=== PATIENT | male | born 1950 | race Caucasian/White ===

== ENCOUNTER 2019-03-06 18:32 | Inpatient (IN) | payer OTHER ==
[~2019-03-06] VITALS: Ht 170.2 cm; Wt 68.5 kg
--- NOTE | 2019-03-06 19:30 | NUR ---
Admitted a 68 y/o male from [facility]. Patient on 5150 hold as DTO and GD, per hold, patient's behavior escalated, bizarre, aggressive and agitated. Upon face to face evaluation, patient presents as alert and oriented x 4, calm, cooperative, withdrawn, verbalized that he is very depressed that he can not do what he used to do when he is stressed. Patient contracted for safety and seeking help to get better. Patient arrived via [facility] . Received patient in bed. Skin and body assessment done. Pictures taken and placed in chart. Explained the paper works and patient signed the consents. Informed of visiting hours and unit policies. Belongings and contraband checked. Q15 min checks initiated. Care plan started. Vital signs checked and recorded. Patient's rights discussed, guide to prescription meds handbook provided. Patient advised of the hold. Patient used cordless phone and spoke to his spouse and son. Son spoke to the charge nurse regarding of the admission. MRSA specimen collected. Notified Dr. Conrad of the admission. Dr. Peña reconciled medication. Will monitor patient for mood, safety and behavior. Will endorse to the day shift.
[2019-03-06] MEDS ORDERED: ATOR10TA PO (19:52)
[2019-03-06] MEDS ORDERED: AMLO5TAB4 PO (19:52)
[2019-03-06] MEDS ORDERED: LORA-259 PO (19:53)
[2019-03-06] MEDS ORDERED: ENOX40DI SUBCUT (19:59)
[2019-03-06 20:00] VITALS: BP 147/93
[2019-03-06] MEDS ORDERED: MELA3TAB PO (20:00)
[2019-03-06] MEDS ORDERED: OLAN5TAB3 PO (20:00)
[2019-03-06] MEDS ORDERED: ONDA4TAB11 PO (20:03)
[2019-03-06] MEDS ORDERED: MAG HYDROX/AL HYDROX/SIMETH 30 ML UDC PO PRN (20:30)
[2019-03-06] MEDS ORDERED: MAGNESIUM HYDROXIDE 30 ML UDC PO PRN (20:30)
[2019-03-06] MEDS ORDERED: Medication Not On Formulary EA (Melatonin 0.5 MG) PO PRN (21:00)
[2019-03-06 22:22] VITALS: BP 147/93
[2019-03-07] MEDS: LORAZEPAM 0.5 MG TABLET PO PRN ×3 (00:34→19:58)
--- NOTE | 2019-03-07 00:39 | NUR ---
gps rn note: Patient responsive to internal stimuli, acting bizarre, hyperventilating, anxious, ativan 0.5mg po given and patient appreciated, will continue to monitor [id number] for safety
[2019-03-07 07:38] LABS: BASOPHILS % (AUTO) 0.5 % (0.0-2.0); HEMATOCRIT 41 % (39-51); HEMOGLOBIN 13.7 g/dL (13.5-17.5); LYMPHOCYTES # (AUTO) 0.9 /CMM (0.8-4.8); LYMPHOCYTES % (AUTO) 15.9 % (20.0-44.0); MEAN CORPUSCULAR HGB CONC 34 g/dl (31.0-36.0); MEAN CORPUSCULAR VOLUME 93 fL (80-96); MONOCYTES # (AUTO) 0.5 /CMM (0.1-1.30); MONOCYTES % (AUTO) 9.5 % (2.0-12.0); NEUTROPHILS # (AUTO) 4.1 /CMM (1.8-8.9); NEUTROPHILS % (AUTO) 73.1 % (43.0-81.0); PLATELET COUNT (AUTO) 192 /CMM (150-450); RED BLOOD CELL COUNT(AUTO) 4.39 MIL/uL (4.5-6.0); WHITE BLOOD COUNT (AUTO) 5.7 K/uL (4.3-11.0)
[2019-03-07 07:54] LABS: CALCIUM, SERUM 9.6 mg/dL (8.5-10.1); CREATININE 1.1 mg/dL (0.6-1.3); MAGNESIUM 2.2 mg/dL (1.8-2.4); PHOSPHORUS 3.4 mg/dL (2.5-4.9); POTASSIUM 3.7 mmol/L (3.5-5.1)
[2019-03-07 08:00] VITALS: BP 132/72
[2019-03-07] MEDS: AMLODIPINE BESYLATE 5 MG TABLET PO SCH (08:44)
[2019-03-07] MEDS: ENOXAPARIN SODIUM 40 MG/0.4 ML DISP.SYRIN SQ SCH (08:51)
--- NOTE | 2019-03-07 13:00 | NUR ---
GPS NOTE THE PATIENT NOTED PACING IN THE HALLWAY AND TALKING TO SELF. THE PATIENT IS ASKED IF HE HEARS VOICES, THE PATIENT DENIES, HOWEVER, UPON OBSERVATION IS NOTED THAT THE PATIENT IS REPOSNDING TO INTERNAL STIMULI. WHEN ASKED AGAIN, THE PATIENT SAID " WAIT, I AM UPSET ON THESE GUYS" THE PATIENT WAS REFERRING VOICES IN HIS HEAD. THE PATIENT DENIES SI, HI. AFTERWARD THE PATIENT IS SEEN TRYING TO LIE ON THE FLOOR. THE PATIENT IS ASKED WHY IS HE TRYING TO LIE ON THE FLOOR AND HE SAID " IT CALM ME DOWN". THE PATIENT IS ASKED TO LIE IN BED BUT THE PATIENT REFUSED. LATER THE PATIENT IS SEEN AGAIN LYING ON THE FLOOR A WAY OF RELAXING.
[2019-03-07 16:00] VITALS: BP 149/94
[2019-03-07] MEDS: ATORVASTATIN 10 MG TABLET PO SCH (17:49)
[2019-03-07] MEDS ORDERED: OLANZAPINE 5 MG TABLET PO SCH (18:00)
[2019-03-07 20:36] VITALS: BP 141/90
[2019-03-07] MEDS: TEMAZEPAM 7.5 MG CAPSULE PO PRN (20:39)
[2019-03-08] MEDS: LORAZEPAM 0.5 MG TABLET PO PRN ×2 (02:00→08:39)
--- NOTE | 2019-03-08 06:35 | NUR ---
GPS/RN-PLACED A CALL TO REGARDING PATIENTS BEHAVIOR.UNABLE TO REDIRECT,PATIENT GOES TO OTHER PATIENTS ROOM WAKING THEM UP,REMOVING THEIR BLANKET AND TAKING THEIR BELONGINGS.DR. MITCHELL ORDERED 1:1 SITTER.NOTED AND CARRIED OUT.
[2019-03-08 07:20] LABS: ALBUMIN 4.1 g/dL (3.4-5.0); BILIRUBIN,TOTAL 0.8 mg/dL (0.2-1.0); CALCIUM, SERUM 9.8 mg/dL (8.5-10.1); POTASSIUM 3.6 mmol/L (3.5-5.1); TOTAL PROTEIN, SERUM 7.4 g/dL (6.4-8.2)
[2019-03-08 07:21] LABS: BASOPHILS % (AUTO) 0.5 % (0.0-2.0); EOSINOPHILS % (AUTO) 0.9 % (0.0-6.0); HEMATOCRIT 44 % (39-51); HEMOGLOBIN 14.9 g/dL (13.5-17.5); LYMPHOCYTES # (AUTO) 1.1 /CMM (0.8-4.8); LYMPHOCYTES % (AUTO) 18.6 % (20.0-44.0); MEAN CORPUSCULAR HGB CONC 34 g/dl (31.0-36.0); MEAN CORPUSCULAR VOLUME 93 fL (80-96); MONOCYTES # (AUTO) 0.6 /CMM (0.1-1.30); MONOCYTES % (AUTO) 10.3 % (2.0-12.0); NEUTROPHILS # (AUTO) 4.3 /CMM (1.8-8.9); NEUTROPHILS % (AUTO) 69.7 % (43.0-81.0); PLATELET COUNT (AUTO) 190 /CMM (150-450); RED BLOOD CELL COUNT(AUTO) 4.69 MIL/uL (4.5-6.0); WHITE BLOOD COUNT (AUTO) 6.1 K/uL (4.3-11.0)
[2019-03-08 08:00] VITALS: BP 160/99
--- NOTE | 2019-03-08 08:00 | NUR ---
GPS RN AM NOTES THE PATIENT NOTED PACING IN THE HALLWAY AND TALKING TO SELF. THE PATIENT IS ASKED IF HE HEARS VOICES,PATIENT DENIES SI, HI.PT IS WITH 1:1 SITTER.PT TALKS TO HIMSELF SAYING HE'S BLEEDING AND HE'S DYING. PT KEEPS PACING WITH THE SITTER.WILL GIVE LORAZEPAM 0.5 MG PO FOR ANXIETY. PT COMPLIANT WITH MEDS AND COOPERATIVE WITH STAFF.WILL CONTINUE TO MONITOR.
[2019-03-08] MEDS: ACETAMINOPHEN 325 MG TABLET PO PRN (08:39)
[2019-03-08] MEDS: AMLODIPINE BESYLATE 5 MG TABLET PO SCH (08:39)
[2019-03-08] MEDS: DIVALPROEX SODIUM 250 MG TABLET.DR PO SCH ×4 (08:40→23:14)
[2019-03-08] MEDS: ENOXAPARIN SODIUM 40 MG/0.4 ML DISP.SYRIN SQ SCH (08:41)
--- NOTE | 2019-03-08 10:03 | NUR ---
SW contacted pts Frances [phone] to discuss pts treatment plan and discharge plan and also discussed collateral information. Per this is the first time pt has ever had a psychiatric hospitalization and a psychiatric episode. stated that she is unsure what triggered pts brenda and also stated that she was scared regarding the medication pt has been given. stated that she feels the hospital is trying to "drug him up" so that he is complacent with his care. SW informed her that pt is currently manic and has been diagnosed with Mood disorder, not otherwise specified, rule out bipolar disorder, most recent episode manic and that medication is required to reduce symptoms of brenda. SW informed her that she should discuss pts medication regimen in detail with psychiatrist and SW also informed her that she would be informing psychiatrist Dr. Conrad to contact her to discuss pts treatment further. also mentioned that pt has regressed since admitted to this hospital and mentioned that pt was not having these symptoms of brenda when transferred from the previous hospital.
--- NOTE | 2019-03-08 11:12 | NUR ---
INITIAL DISCHARGE NOTE: Per Frances [phone] she is exploring placement options and is currently working with a private lead case manager Christal Mccallum, [facility] [phone] who will be assisting with alternative placement options. stated she may not be able to provide pt with the care he needs at home and may require he live in a setting that can provide him with more assistance. LEN will help form a safe and proper discharge in collaboration with .
--- NOTE | 2019-03-08 15:00 | NUR ---
PT'S ,SARAH CALLED AND MADE PT AWARE OF HIS AND SON CALLING HIM AND THAT THEY ARE COMING TO VISIT HIM.PT STARTED CRYING TERRIBLY, VERBAL AND EMOTIONAL SUPPORT PROVIDED. PROVIDED TISSUE TO WIPE HIS TEARS.1;1 SITTER AT BEDSIDE.
[2019-03-08 16:00] VITALS: BP 148/97
--- NOTE | 2019-03-08 17:00 | NUR ---
PT WAS PACING IN THE HALLWAY WITH THE SITTER AND ALL OF A SUDDEN WANTS TO HEAD OUT TO THE EXIT DOOR PUSHING IT TO OPEN.GENTLY APPROACHED THE PT AND EXPLAINED IN A LOW VOICE NOT TO OPEN THE DOOR. PT'S EYES WIDE OPEN,WITH A POTTS,ANGRY FACE,HEADING BACK TO THE EXIT DOOR AND ABOUT TO HIT THE STAFF.CALLED FOR HELP AND THE REST OF THE STAFF HELD THE PT'S HANDS FOR SAFETY. PT DIVERTED HIS ATTENTION TO THE SITTER,SCREAMING AT THE SITTER ANGRILY SCREAMING ANGRILY,"YOU LIED TO ME!YOU LIED TO ME!" REPEATEDLY.CALLED FOR PATRICIA FRANCES FOR HELP/ASSISTANCE WHEN PT'S ANGER WAS ESCALATING.PAGED DR MITCHELL.
[2019-03-08] MEDS ORDERED: OLANZAPINE 10 MG VIAL IM STA (17:06)
[2019-03-08] MEDS ORDERED: LORAZEPAM INJ 2 MG/ML VIAL IM STA (17:06)
--- NOTE | 2019-03-08 17:14 | NUR ---
DR MITCHELL MADE AWARE WITH ORDERS CARRIED OUT.ADMINISTERED ATIVAN 1 MG AND ZYPREXA 5 MG IM GIVEN WITH 7 MEN HOLDING PT BECAUSE PT KICKS AND GRABS STAFF.WILL MONITOR PT.
--- NOTE | 2019-03-08 17:40 | NUR ---
PT STILL HAS EPISODES OF AGITATION SCREAMING,KICKING AND GRABBING STAFF.CLOSELY MONITORED FOR SAFETY.
--- NOTE | 2019-03-08 18:00 | NUR ---
PT'S ,SARAH AND SON,NIYAH ARRIVED TO TALK TO THE PT. CLOSELY MONITORED FOR SAFETY.
[2019-03-08] MEDS: ATORVASTATIN 10 MG TABLET PO SCH (18:24)
--- NOTE | 2019-03-08 18:30 | NUR ---
SARAH AND SON NIYAH BROUGHT AN ADVANCE DIRECTIVES AND WAS CLARIFIED AND SAID THEY WANTED A DNR/DNI FOR THE PATIENT. WITNESSED BY THE CHARGE NURSE JOSS ERIC'S EFREM.
--- NOTE | 2019-03-08 18:40 | NUR ---
PT SLEEPING COMFORTABLY IN BED WITH NO S/S OF PAIN OR DISTRESS.WITH 1:1 SITTER AT BEDSIDE.WILL CONTINUE TO MONITOR.
[2019-03-08 20:00] VITALS: BP 114/78
[2019-03-08] MEDS: QUETIAPINE FUMARATE 100 MG TABLET PO SCH ×2 (22:00→23:14)
--- NOTE | 2019-03-08 22:17 | NUR ---
SEROQUEL 100 MG TAB PO NOT GIVEN DUE FOR 2199, PATIENT STILL SLEEPING DUE TO IM SHOT ADMIISTERED EARLIER AROUND 1700 DUE TO BEHAVIORAL SYMPTOMS.
--- NOTE | 2019-03-08 22:19 | NUR ---
DEPAKOTE 250 MG TAB PO NOT GIVEN FOR 2100, PATIENT STILL SLEEPING DUE TO IM SHOT GIVEN AROUND 1700 FOR BEHAVIORAL SYMPTOMS.
--- NOTE | 2019-03-08 23:15 | NUR ---
PATIENT JUST WOKE UP, USED THE TOILET. TOOK HIS MEDICATIONS FOR TONIGHT, DEPAKOTE 250 MG TAB, AND SEROQUEL 100MG TAB. CALM AND QUIET, COOPERATIVE. HS SNACKS GIVEN, C/O FEELING HUNGRY, SANDWICH AND JUICE.
[2019-03-09] MEDS: LORAZEPAM 0.5 MG TABLET PO PRN ×2 (00:10→16:24)
--- NOTE | 2019-03-09 02:35 | NUR ---
AWAKE, NOT SLEEPING. AMBULATES IN AND OUTSIDE HIS ROOM, TEMAZEPAM 7.5 GIVEN, PATIENT REFUSED X2.
--- NOTE | 2019-03-09 06:57 | NUR ---
Seroquel 100 mg tab po given at 2314. Patient just woke up.
[2019-03-09 08:00] VITALS: BP 105/66
--- NOTE | 2019-03-09 08:37 | NUR ---
GPS/RN-NOTES DR. HOLDER SEEN THE PATIENT WITH VERBAL ORDER TO DISCONTINUE LOVENOX,NOTED AND CARRIED OUT.
[2019-03-09] MEDS: DIVALPROEX SODIUM 250 MG TABLET.DR PO SCH ×4 (09:00→23:08)
[2019-03-09] MEDS: AMLODIPINE BESYLATE 5 MG TABLET PO SCH (09:00)
[2019-03-09 16:00] VITALS: BP 130/87
--- NOTE | 2019-03-09 16:27 | NUR ---
GPS/RN-NOTES NOTED PATIENT VERY ANXIOUS PACING INSIDE THE ROOM,UNABLE TO SIT STILL, REDIRECTED AND OFFERED ATIVAN AND GREED. ATIVAN 0.5MG P.O GIVEN PRN ORDER. ON 1:1 MONITORING FOR SAFETY AND BEHAVIOR.
[2019-03-09] MEDS: ATORVASTATIN 10 MG TABLET PO SCH (17:06)
--- NOTE | 2019-03-09 17:25 | NUR ---
GPS/RN-NOTES PATIENT IN THE ROOM LAYING IN THE TOMMIE CHAIR CALM ,NO ACUTE DISTRESS NOTED.
[2019-03-09 19:55] VITALS: BP 148/97
[2019-03-09] MEDS: QUETIAPINE FUMARATE 100 MG TABLET PO SCH ×2 (22:00→23:08)
[2019-03-09] MEDS: TEMAZEPAM 7.5 MG CAPSULE PO PRN (23:08)
--- NOTE | 2019-03-09 23:10 | NUR ---
03/09/2019 7P-7A SHIFT. SEROQUEL 100MG PO 1TAB AT 2308.
[2019-03-10] MEDS: LORAZEPAM 0.5 MG TABLET PO PRN ×2 (04:08→21:15)
[2019-03-10 08:00] VITALS: BP 134/78
[2019-03-10] MEDS: AMLODIPINE BESYLATE 5 MG TABLET PO SCH (08:55)
[2019-03-10] MEDS: DIVALPROEX SODIUM 250 MG TABLET.DR PO SCH ×3 (08:55→21:06)
[2019-03-10] MEDS: LEVOTHYROXINE SODIUM 25 MCG TABLET PO SCH (14:35)
[2019-03-10 16:00] VITALS: BP 134/84
[2019-03-10] MEDS: ATORVASTATIN 10 MG TABLET PO SCH (18:17)
[2019-03-10 20:36] VITALS: BP 162/92
[2019-03-10] MEDS: TEMAZEPAM 7.5 MG CAPSULE PO PRN (21:06)
--- NOTE | 2019-03-10 21:34 | NUR ---
03/10/2019: DIVALPROEX 250 MG TAB 1 PO GIVEN AT 2133.
--- NOTE | 2019-03-10 21:51 | NUR ---
03/10/2019: SEROQUEL 100 MG TAB PO GIVEN AT 2131.
[2019-03-11 08:00] VITALS: BP 122/67
[2019-03-11] MEDS: DIVALPROEX SODIUM 250 MG TABLET.DR PO SCH ×3 (08:16→21:28)
[2019-03-11] MEDS: AMLODIPINE BESYLATE 5 MG TABLET PO SCH (08:17)
[2019-03-11] MEDS: LEVOTHYROXINE SODIUM 25 MCG TABLET PO SCH (08:17)
--- NOTE | 2019-03-11 09:11 | NUR ---
RN-CO: PATIENT IS MORE REDIRECTABLE, NO AGGRESSION NOTED FROM LAST NIGHT, NOTIFIED DR MITCHELL AND ORDERED TO DISCONTINUE 1:1 SITTER NOTED.
--- NOTE | 2019-03-11 14:51 | NUR ---
GROUP NOTE: Pt unable to participate in group on this present day as pt is actively responding to internal stimuli and not being appropriate for group.
[2019-03-11 16:00] VITALS: BP 157/90
[2019-03-11] MEDS: ATORVASTATIN 10 MG TABLET PO SCH (17:58)
[2019-03-11] MEDS: LORAZEPAM 0.5 MG TABLET PO PRN (19:30)
[2019-03-11 20:53] VITALS: BP 113/74
[2019-03-11 21:00] VITALS: BP 113/74
[2019-03-11] MEDS: risperiDONE 1 MG TABLET PO SCH (21:28)
[2019-03-11] MEDS: TEMAZEPAM 7.5 MG CAPSULE PO PRN (23:03)
[2019-03-12] MEDS: LORAZEPAM 0.5 MG TABLET PO PRN ×3 (01:35→20:04)
--- NOTE | 2019-03-12 01:40 | NUR ---
GPS RN NOTES: PT. NOTED VERY ANXIOUS,HYPERVERBAL, RESTLESS PACING IN HALLWAY, NOT FOLLOWING ANY REDIRECTIONS, ATIVAN 0.5 MG PO PRN GIVEN , WILL CONTINUE TO MONITOR.
--- NOTE | 2019-03-12 07:24 | NUR ---
GPS RN NOTES: DURING SHIFT PT. NOTED VERY DISORGNIZED CONFUSED LOUD TALKING SELF ANXIOUS,HYPERVERBAL, RESTLESS PACING IN HALLWAY, NOT FOLLOWING ANY DIRECTIONS , ENDORSE TO DAY NURSE FOR CONTINUITY OF CARE .WILL CONTINUE TO MONITOR.
[2019-03-12 08:00] VITALS: BP 146/99
--- NOTE | 2019-03-12 08:02 | NUR ---
Received patient . Alert and oriented times 2, person and place. Receptive upon approach. However, patient required redirection at times. Minimal interaction with peers. Will continue to monitor behavior and medication effectiveness throughout shift.
--- NOTE | 2019-03-12 08:16 | NUR ---
LEN contacted pts Frances [phone] to inform her pt will be having a Probable Cause Hearing on this present day at 0930. Pts chose not to attend and stated she would contact LEN later during the week to discuss placement for pt.
[2019-03-12] MEDS: LEVOTHYROXINE SODIUM 25 MCG TABLET PO SCH (08:54)
[2019-03-12] MEDS: DIVALPROEX SODIUM 250 MG TABLET.DR PO SCH ×3 (08:55→21:10)
[2019-03-12] MEDS: AMLODIPINE BESYLATE 5 MG TABLET PO SCH (08:56)
[2019-03-12] MEDS: risperiDONE 1 MG TABLET PO SCH ×2 (08:56→21:10)
--- NOTE | 2019-03-12 15:21 | NUR ---
GROUP NOTE: Pt was present during group discussing the topic of "issues related to your current hospitalization." S: "I don't trust anyone here I don't even trust my that much she is making decision that I don't think are good for me. I mean I am willing to stay here but I don't know I keep having these spikes that I don't really understand." O: Pt was anxious and appeared paranoid, pt had his folder with paperwork hidden underneath his hospital gown. Pt was also hyperverbal and difficult to redirect. A: Pt has poor insight and has gained some awareness of his current mental illness and reason for hospitalization. P: Pt will continue milieu treatment and medication stabilization.
--- NOTE | 2019-03-12 15:39 | NUR ---
Patient with episodes of confusion and irritability. Redirected and assisted frequently. Compliant with the plan of care.
[2019-03-12 16:00] VITALS: BP 125/88
[2019-03-12] MEDS: ATORVASTATIN 10 MG TABLET PO SCH (17:12)
--- NOTE | 2019-03-12 17:33 | NUR ---
Neurologist Dr. Bradshaw called. Awaiting to hear from the doctor. Will continue to monitor patient behavior and medication effectiveness.
--- NOTE | 2019-03-12 20:05 | NUR ---
GPS RN NOTES : PT. NOTED VERY ANXIOUS,HYPERVERBAL, RESTLESS PACING IN HALLWAY, NOT FOLLOWING ANY REDIRECTIONS, ATIVAN 0.5 MG PO PRN GIVEN , WILL CONTINUE TO MONITOR.
[2019-03-12 20:35] VITALS: BP 164/78
[2019-03-12 22:00] VITALS: BP 130/80
[2019-03-12] MEDS: TEMAZEPAM 7.5 MG CAPSULE PO PRN (23:11)
[2019-03-13] MEDS: ACETAMINOPHEN 325 MG TABLET PO PRN (01:50)
--- NOTE | 2019-03-13 03:05 | NUR ---
GPS RN NOTES : PT. NOTED VERY ANXIOUS, UNCOOPERTIVE,UNPREDICTABLE HYPERVERBAL, RESTLESS PACING IN HALLWAY AND ROOM , VERBAL ABUSING TO STAFF, PT. LOCKED HIMSELF IN THE RESTROOM , WHEN STAFF MEMBER TRYING TO OPEN THE RESTROOM LOCKED AND DIRECT HIM TO STEP OUT , PT. DIDN'T FOLLOWING ANY DIRECTIONS .STAFF ASKED THE PATIENT TO OPEN THE DOOR AND PATIENT OPENED THE DOOR AND AT THE SAME TIME THREW THE URINE TOWARDS THE FACE OF THE STAFF.PATRICIA URBAN WAS CALLED FOR STAFF SUPPORT .PATIENT WAS ESCORTED BY STAFF TO THE OBSERVATION ROOM. NOTIFIED DR. MITCHELL PT. BEHAVIOR, NEW VERBAL TELEPHONE ORDERS RECIVED ATIVAN 2 MG IM ONCE ,ZYPREXA 10 MG IM ONCE AND TO PLACE PATIENT ON 4 POINT RESTRAINT. NEW ORDERS RECIVED AND CARRIED OUT ,WILL CONTINUE TO MONITOR.
[2019-03-13] MEDS ORDERED: LORAZEPAM INJ 2 MG/ML VIAL IM STA (03:14)
[2019-03-13] MEDS ORDERED: OLANZAPINE 10 MG VIAL IM ONE (03:30)
--- NOTE | 2019-03-13 03:45 | NUR ---
GPS RN NOTES : PT. NOTIFED REGARDING GIVEN INJECTION ZYPREXA 10 MG IM ONCE ,ATIVAN 2 MG IM ONCE,PER DR. MITCHELL ORDERS, WRITE SPOKE WITH ABOUT PT. BEHAVIOR VERY ANXIOUS, UNCOOPERTIVE,UNPREDICTABLE HYPERVERBAL, RESTLESS PACING IN HALLWAY AND ROOM , VERBAL ABUSING TO STAFF, PT. LOCKED HIMSELF IN THE RESTROOM , WHEN STAFF MEMBER TRYING TO OPEN THE RESTROOM LOCKED AND DIRECT HIM TO STEP OUT , PT. DIDN'T FOLLOWING ANY DIRECTIONS .STAFF ASKED THE PATIENT TO OPEN THE DOOR AND PATIENT OPENED THE DOOR AND AT THE SAME TIME THREW THE URINE TOWARDS THE FACE OF THE STAFF.PATRICIA URBAN WAS CALLED FOR STAFF SUPPORT .PATIENT WAS ESCORTED BY STAFF TO THE OBSERVATION ROOM. AND TO PLACE PATIENT ON 4 POINT RESTRAINT ,WILL CONTINUE TO MONITOR.
--- NOTE | 2019-03-13 04:14 | NUR ---
GPS RN NOTES: CALLED ER , SPOKE WITH ER CHARGE NURSE REGARDING I HOUR FACE TO FACE ASSESSMENT THE PATIENT. PER ER CHARGE NURSE MD WAS UNBALE, GPS CHARGE NURSE DID FACE TO FACE ASSESSMENT, NO ACUTE DISTRESS NOTED, PT. TOLERATE WELL VITAL SIGNS WNL, SEE PT. ASESSMENT SHEET .
--- NOTE | 2019-03-13 05:33 | NUR ---
4 POINT RESTRAINT WAS DISCONTINUED AT 05:30.PATIENT ABLE TO CONTRACT FOR SAFETY,CALM,COOPERATIVE ,NO S/S OF ACUTE DISTRESS NOTED.
--- NOTE | 2019-03-13 06:49 | NUR ---
RN GPS NOTES: COLLECT URINE SPECIMEN AND SEND OUT TO THE LAB.
--- NOTE | 2019-03-13 06:51 | NUR ---
GPS RN NOTES : PT. CALM , RESTING AT HIS TIME , NO ACUTE DISTRESS NOTED, VITAL SIGNS WNL , WILL ENDORSE TO ON COMING NURSE FOR CONTINUITY OF CARE.
[2019-03-13] MEDS: LEVOTHYROXINE SODIUM 25 MCG TABLET PO SCH (07:30)
[2019-03-13 08:00] VITALS: BP 91/61
[2019-03-13] MEDS: AMLODIPINE BESYLATE 5 MG TABLET PO SCH (09:00)
[2019-03-13 09:24] LABS: APPEARANCE,URINE CLEAR (CLEAR); BILIRUBIN,URINE NEGATIVE (NEGATIVE); BLOOD, URINE NEGATIVE Ery/uL (NEGATIVE); COLOR,URINE YELLOW (YELLOW); KETONES,URINE TRACE (NEGATIVE); LEUKOCYTE ESTERASE ,URINE NEGATIVE (NEGATIVE); NITRITE, URINE NEGATIVE (NEGATIVE); PH,URINE 6.5 (5.0-8.0); PROTEIN,URINE NEGATIVE (NEGATIVE); UGLUCOSE NEGATIVE (NEGATIVE); UROBILINOGEN,URINE 0.2 EU/dL (0.2)
[2019-03-13] MEDS: DIVALPROEX SODIUM 250 MG TABLET.DR PO SCH ×2 (09:37→12:35)
[2019-03-13] MEDS: risperiDONE 1 MG TABLET PO SCH (09:38)
[2019-03-13 09:52] LABS: BACTERIA,URINE Rare /HPF (None Seen); RBC,URINE 0-2 /HPF (0-2); SQUAMOUS EPITHELIAL CELL,UR None Seen /HPF (None Seen); WBC,URINE 0-2 /HPF (0-3)
[2019-03-13] MEDS: LORAZEPAM 0.5 MG TABLET PO PRN (10:54)
--- NOTE | 2019-03-13 10:59 | NUR ---
GPS/RN-NOTES NOTED PATIENT VERY ANXIOUS PACING INSIDE THE ROOM,UNABLE TO SIT STILL.ATIVAN 0.5MG P.O GIVEN PRN ORDER. ON 1:1 MONITORING FOR SAFETY AND BEHAVIOR.
--- NOTE | 2019-03-13 11:55 | NUR ---
GPS/RN-NOTES PATIENT LAYING IN BED CALM,NO ACUTE DISTRESS NOTED.
[2019-03-13 16:00] VITALS: BP 129/66
[2019-03-13] MEDS: ATORVASTATIN 10 MG TABLET PO SCH (17:50)
--- NOTE | 2019-03-13 19:10 | NUR ---
GPS/RN-NOTES DURING THE CHANGE OFF SHIFT SITTER STAFF CALLING FOR HELP FROM THE PATIENT BATHROOM,NURSE COORDINATOR CHECK AND FOUND PATIENT SITTING ON THE TOILET SEAT UNRESPONSIVE . TWO STAFF ASSISTED PATIENT BACK TO THE BED AND PATIENT GOT AWAKE ABLE TO STATE FULL NAME AND KNOW WERE HE WAS. BP WAS 88/56,R17, ,PULSE 67,T97.9 ,AND O2 97%. CHARGE NURSE AWARE AND DECIDE TO CALL [facility].
[2019-03-13 19:15] VITALS: BP 78/43
--- NOTE | 2019-03-13 19:20 | NUR ---
GPS RN NOTE, DR MITCHELL MADE AWARE OF DISCHARGE GAVE ORDER TO CONTINUE 5250 HOLD, CONTINUE 1 TO 1 SITTER, AND TO CONTINUE PSYCHOTROPIC MEDICATION. ALL ORDERS NOTED AND CARRIED OUT. REPORT GIVEN TO VIKTOR COREAS FOR CONTINUED CARE.
--- NOTE | 2019-03-13 19:20 | NUR ---
GPS RN NOTE, [facility] CALLED FOR PATIENT DUE TO LOC AND HYPOTENSION. THEO GOMES DNP ON FLOOR WITH [facility] RESPON[facility] TEAM. THEO GOMES DNP GAVE ORDER ZOFRAN 4 MG IV ONCE , NS @100ML/HR, CBC, BMP, MAG, PHOS, AND CHEST X-RAY STAT. ALL ORDERS NOTED AND CARRIED WILL CONTINUE TO MONITOR THIS PATIENT.
--- NOTE | 2019-03-13 19:55 | NUR ---
GPS RN NOTE, PATIENT DISCHARGED AND TRANSFERRED TO ROOM 106 -1 TELE. PATIENT LEFT IN STABLE CONDITION. PATIENT BELONGINGS SENT WITH PATIENT. PATIENT UNABLE TO SIGN NECESSARY PAPER WORK. INFORMED PATIENT SARAH SANTIAGO OF TRANSFER TO 106 -1. REPORT GIVEN TO VIKTOR COREAS FOR CONTINUED CARE.
[2019-03-13] MEDS ORDERED: ONDANSETRON HCL/PF 4 MG/2 ML VIAL IV ONE (20:00)
[2019-03-13] MEDS ORDERED: IV NS 0.9% 1,000 ML BAG IV ONE (20:00)
[2019-03-13] MEDS ORDERED: DIVALPROEX SODIUM 250 MG TABLET.DR PO SCH (21:00)
[2019-03-13] MEDS ORDERED: risperiDONE 1 MG TABLET PO SCH (22:00)
--- NOTE | 2019-03-15 08:33 | NUR ---
DISCHARGE NOTE: Pt was discharged on 03/13/19 to Telemetry unit due to Hypertension.
== END 2019-03-13 20:09 | disposition short-term general hospital (02) | DRG 885 ==
LOC: GPS 18:32
PROVIDERS: ADMIT Psychiatry & Neurology Psychiatry; ATTEND Nurse Practitioner Acute Care
DX: F31.10 Bipolar disorder, current episode manic without psychotic features, unspecified (principal); E78.5 Hyperlipidemia, unspecified; I10 Essential (primary) hypertension; F39 Unspecified mood [affective] disorder; F12.90 Cannabis use, unspecified, uncomplicated; E03.9 Hypothyroidism, unspecified; Z73.6 Limitation of activities due to disability; F29 Unspecified psychosis not due to a substance or known physiological condition
CPT/HCPCS: 36415; 71045-TC; 80048-TC; 80053-TC; 80061-TC; 80164-TC; 80305; 81000-TC; 82140-TC; 82962-TC; 83735-TC; 84100-TC; 84439-TC; 84443-TC; 85025-TC; 87081-TC; J1650; J2060; J2405; J3490; J7030

== ENCOUNTER 2019-03-13 20:41 | Inpatient (IN) | payer MEDICARE, OTHER ==
[~2019-03-13] VITALS: Ht 172.7 cm; Wt 67.6 kg
--- NOTE | 2019-03-13 19:15 | NUR ---
GPS RN NOTE, [facility] CALLED FOR PATIENT DUE TO LOC AND HYPOTENSION. THEO GOMES DNP ON FLOOR WITH [facility]PON[facility] TEAM. THEO GOMES DNP GAVE ORDER ZOFRAN 4 MG IV ONCE , NS 1,000ML @100ML/HR ONCE, CBC, BMP, MAG, PHOS, AND CHEST X-RAY STAT. THEO GOMES DNP ALSO GAVE ORDER TO DISCHARGE PATIENT TO TELE ROOM 106. ALL ORDERS NOTED AND CARRIED WILL CONTINUE TO MONITOR THIS PATIENT. DR MITCHELL MADE AWARE OF DISCHARGE GAVE ORDER TO CONTINUE 5250 HOLD, CONTINUE 1 TO 1 SITTER, AND TO CONTINUE PSYCHOTROPIC MEDICATION. ALL ORDERS NOTED AND CARRIED OUT. REPORT GIVEN TO VIKTOR COREAS FOR CONTINUED CARE.
[2019-03-13 20:00] VITALS: BP 117/84
--- NOTE | 2019-03-13 20:30 | NUR ---
MACHINE OPERATOR CANE CUTTER NOTE INFORMED DR ROSSI THAT PT ARRIVED FROM GPS NEW ADMISSION. PT REMAIN ON HOLD 5250. PT IS PLACED ON TELE. SR HR 77 WITH ELEVATED T WAVE. PT IS A/O X 1, CONFUSED. DROWSE. IVF NS INFUSING 1L BOLUS DUR TO HYPOTENSIVE EARLIER IN GPS. B/P 117/84 NOW. SKIN INTACT. REPORT RECEIVED FROM ANITA NURSE FROM GPS. ALSO CHARGE NURSE BC GAVE THE REPORT ABOUT THE ORDERS HE RECEIVED FORM THEO. SITTER AT BED SIDE. ALL NEEDS ATTENDED. SIDE RAILS UP X 2 AND CALL LIGHT WITHIN REACH. VSS. CONTINUE TO MONITOR HIM.
[~2019-03-13 20:41] MED LIST: AMLO5TAB4 PO; ATOR10TA PO; ENOX40DI SUBCUT; MELA3TAB PO; OLAN5TAB3 PO; ONDA4TAB11 PO
[2019-03-13] MEDS ORDERED: IV NS 0.9% 1,000 ML BAG IV ONE (21:00)
[2019-03-13] MEDS ORDERED: ONDANSETRON HCL/PF 4 MG/2 ML VIAL IV ONE (21:00)
[2019-03-13] MEDS: DIVALPROEX SODIUM 500 MG TABLET.DR PO SCH (21:00)
[2019-03-13 21:22] LABS: BASOPHILS % (AUTO) 0.1 % (0.0-2.0); EOSINOPHILS % (AUTO) 0.3 % (0.0-6.0); HEMATOCRIT 39 % (39-51); HEMOGLOBIN 13.3 g/dL (13.5-17.5); LYMPHOCYTES # (AUTO) 0.7 /CMM (0.8-4.8); LYMPHOCYTES % (AUTO) 6.7 % (20.0-44.0); MEAN CORPUSCULAR HGB CONC 34 g/dl (31.0-36.0); MEAN CORPUSCULAR VOLUME 93 fL (80-96); MONOCYTES # (AUTO) 0.9 /CMM (0.1-1.30); MONOCYTES % (AUTO) 8.3 % (2.0-12.0); NEUTROPHILS # (AUTO) 8.8 /CMM (1.8-8.9); NEUTROPHILS % (AUTO) 84.6 % (43.0-81.0); PLATELET COUNT (AUTO) 187 /CMM (150-450); WHITE BLOOD COUNT (AUTO) 10.4 K/uL (4.3-11.0)
[2019-03-13 21:36] LABS: CALCIUM, SERUM 8.8 mg/dL (8.5-10.1); CREATININE 1.2 mg/dL (0.6-1.3); POTASSIUM 4.3 mmol/L (3.5-5.1)
[2019-03-13 21:39] LABS: PHOSPHORUS 3.7 mg/dL (2.5-4.9)
[2019-03-13] MEDS: risperiDONE 1 MG TABLET PO SCH (22:00)
[2019-03-13] MEDS ORDERED: Medication Not On Formulary EA (Melatonin 0.5 MG) PO PRN (22:00)
[2019-03-13] MEDS: ATORVASTATIN 10 MG TABLET PO SCH (22:00)
[2019-03-13] MEDS ORDERED: ONDANSETRON HCL/PF 4 MG/2 ML VIAL IVP PRN (22:30)
[2019-03-13] MEDS ORDERED: ACETAMINOPHEN 325 MG TABLET PO PRN (22:30)
[2019-03-14] VITALS: BP 110/70
--- NOTE | 2019-03-14 | NUR ---
INTERACTIVE ART DIRECTOR NOTE PT IN BED ASLEEP, REMAIN DROWSY, HELD ALL NIGHT TIME MEDS. SITTER AT BED SIDE. CONTINUE TO MONITOR HIM.
[2019-03-14 04:00] VITALS: BP 119/74
[2019-03-14 06:42] LABS: BASOPHILS % (AUTO) 0.1 % (0.0-2.0); EOSINOPHILS % (AUTO) 0.2 % (0.0-6.0); HEMATOCRIT 38 % (39-51); HEMOGLOBIN 13.2 g/dL (13.5-17.5); LYMPHOCYTES # (AUTO) 0.8 /CMM (0.8-4.8); LYMPHOCYTES % (AUTO) 7.3 % (20.0-44.0); MEAN CORPUSCULAR HGB CONC 34 g/dl (31.0-36.0); MEAN CORPUSCULAR VOLUME 93 fL (80-96); MONOCYTES # (AUTO) 0.9 /CMM (0.1-1.30); MONOCYTES % (AUTO) 8.9 % (2.0-12.0); NEUTROPHILS # (AUTO) 8.7 /CMM (1.8-8.9); NEUTROPHILS % (AUTO) 83.5 % (43.0-81.0); PLATELET COUNT (AUTO) 168 /CMM (150-450); RED BLOOD CELL COUNT(AUTO) 4.12 MIL/uL (4.5-6.0); WHITE BLOOD COUNT (AUTO) 10.4 K/uL (4.3-11.0)
--- NOTE | 2019-03-14 06:45 | NUR ---
INTERACTIVE MEDIA MARKETING STRATEGIST NOTE PT IN BED AWAKE, NO DISTRESS OR DISCOMFORT NOTED. DENIES PAIN. ON TELE MONITOR ST HR 107. DENIES ANY PAIN. SIDE RAILS UP AND CALL LIGHT WITHIN REACH. VSS. JAMES ENDORSE TO DAY SHIFT NURSE FOR CONTINUE TO CARE.
[2019-03-14 06:53] LABS: BILIRUBIN,TOTAL 0.8 mg/dL (0.2-1.0); CREATININE 1.1 mg/dL (0.6-1.3); MAGNESIUM 1.9 mg/dL (1.8-2.4); PHOSPHORUS 3.2 mg/dL (2.5-4.9); POTASSIUM 4.4 mmol/L (3.5-5.1)
--- NOTE | 2019-03-14 07:42 | NUR ---
CAPSULE FILLING MACHINE OPERATOR OPENING NOTES RECEIVED BEDSIDE REPORT. PATIENT A/O X2-3 WALKING AROUND IN ROOM. ON ROOM AIR NO SIGNS OR SYMPTOMS OF RESPIRATORY DISTRESS OR ACUTE PAIN NOTED. SINUS ON MONITOR. IV TO RIGHT WRIST SALINE LOCK AND COVERED. NEED TO CLARIFY ADVANCE DIRECTIVE WITH CODE STATUS. ON 14 DAY HOLD 5250 EXPIRING 03/21/2019. SAFETY PRECAUTIONS IN PLACE BED IN LOW POSITION . SITTER AT BEDSIDE WILL CONT TO MONITOR CLOSELY CALL LIGHT WITHIN REACH
[2019-03-14] MEDS: PANTOPRAZOLE 40 MG TABLET.DR PO SCH (08:30)
[2019-03-14] MEDS: DOCUSATE SODIUM 100 MG CAPSULE PO SCH ×2 (08:30→17:20)
[2019-03-14] MEDS: risperiDONE 1 MG TABLET PO SCH ×2 (08:30→21:31)
[2019-03-14] MEDS: DIVALPROEX SODIUM 500 MG TABLET.DR PO SCH ×2 (08:30→21:32)
[2019-03-14] MEDS: ENOXAPARIN SODIUM 40 MG/0.4 ML DISP.SYRIN SQ SCH (08:37)
[2019-03-14 09:47] VITALS: BP 98/67
[2019-03-14 12:00] VITALS: BP 124/73
[2019-03-14] MEDS: DIVALPROEX SODIUM 250 MG TABLET.DR PO SCH (13:06)
[2019-03-14 16:00] VITALS: BP 121/56
[2019-03-14] MEDS: OLANZAPINE 5 MG TABLET PO SCH (17:20)
--- NOTE | 2019-03-14 18:32 | NUR ---
HAND ICER NOTES PATIENT STABLE THROUGHOUT THE SHIFT. NO SIGNS OR SYMPTOMS OF RESPIRATORY DISTRESS OR ACUTE PAIN NOTED C/O NO MANIC EPISODES.SINUS ON THE MONITOR.AMBULATORY IN ROOM WITH BRP. SITTER AT BEDSIDE . PATIENT ON 14 DAY HOLD END 03/27. IV # 20 SALINE TO RIGHT WRIST. SKIN INTACT. SAFETY AND FALL PRECAUTIONS IN PLACE BED IN LOW POSITION CALL LIGHT WITHIN REACH
--- NOTE | 2019-03-14 19:07 | NUR ---
REPORT ENDORSED TO NOC
--- NOTE | 2019-03-14 19:55 | NUR ---
REPLENISHMENT SPECIALIST INITIAL NOTES RECEIVED BEDSIDE REPORT. PATIENT A/O X2-3 WALKING AROUND IN ROOM. ON ROOM AIR NO SIGNS OR SYMPTOMS OF RESPIRATORY DISTRESS OR ACUTE PAIN NOTED. SINUS ON MONITOR. IV TO RIGHT WRIST SALINE LOCK AND COVERED. ON 14 DAY HOLD 5250 EXPIRING 03/21/2019. SAFETY PRECAUTIONS IN PLACE BED IN LOW POSITION . SITTER AT BEDSIDE WILL CONT TO MONITOR CLOSELY CALL LIGHT WITHIN REACH
[2019-03-14 20:00] VITALS: BP 139/86
[2019-03-14] MEDS: TEMAZEPAM 7.5 MG CAPSULE PO PRN (21:32)
[2019-03-14] MEDS: ATORVASTATIN 10 MG TABLET PO SCH (21:32)
[2019-03-15] VITALS (7 sets, daily range): BP systolic 117–156; BP diastolic 65–98
--- NOTE | 2019-03-15 06:35 | NUR ---
BACKBREAKER ENDORSED NOTES ENDORSED BEDSIDE REPORT. PATIENT A/O X2-3 WALKING AROUND IN ROOM. ON ROOM AIR NO SIGNS OR SYMPTOMS OF RESPIRATORY DISTRESS OR ACUTE PAIN NOTED. SINUS ON MONITOR. IV TO RIGHT WRIST SALINE LOCK AND COVERED. SAFETY PRECAUTIONS IN PLACE BED IN LOW POSITION . SITTER AT BEDSIDE WILL CONT TO MONITOR CLOSELY CALL LIGHT WITHIN REACH
--- NOTE | 2019-03-15 07:30 | NUR ---
RN NOTES RECEIVED PATIENT PACING AROUND THE BEDSIDE, A/A/OX4, ABLE TO MAKE NEEDS KNOWN, NOT ON ANY FORM OF DISTRESS, ON ROOM AIR, BREATHING UNLABORED. SINUS RHYTHM ON THE MONITOR, WITH HR ON THE 70'S. PATIENT APPEARS COMFORTABLE RIGHT NOW, NO COMPLAINTS OF PAIN. IV ACCESS ON THE R WRIST G 20: IN PLACE AND PATENT. DRESSING C/D/I. NO SIGNS OF INFECTION OR INFILTRATION NOTED. PATIENT ENCOURAGE TO CALL FOR HELP AND ASSISTANCE. SAFETY MEASURES ENSURED. CALL LIGHT PLACED WITHIN REACH, SITTER AT BEDSIDE. WILL CONTINUE TO MONITOR AND ANTICIPATE NEEDS
[2019-03-15] MEDS: DOCUSATE SODIUM 100 MG CAPSULE PO SCH ×2 (09:33→17:00)
[2019-03-15] MEDS: PANTOPRAZOLE 40 MG TABLET.DR PO SCH (09:33)
[2019-03-15] MEDS: risperiDONE 1 MG TABLET PO SCH ×2 (09:34→21:40)
[2019-03-15] MEDS: ENOXAPARIN SODIUM 40 MG/0.4 ML DISP.SYRIN SQ SCH (09:34)
[2019-03-15] MEDS: DIVALPROEX SODIUM 500 MG TABLET.DR PO SCH ×2 (09:34→17:00)
--- NOTE | 2019-03-15 10:30 | NUR ---
RN NOTES AT BEDSIDE. ALL QUESTION AND CONCERNS ADDRESSED APPROPRIATELY. REQUESTED TO HAVE 1. NIYAH ALARCON (SON) #[phone] AND 2. CORAL KIRKLAND LCSW (PRIVATE CUSTOMER SERVICE REPRESENTATIVE TELLER) #[id number]. FAXED INFORMATION TO [phone]
[2019-03-15] MEDS: DIVALPROEX SODIUM 250 MG TABLET.DR PO SCH (13:06)
[2019-03-15] MEDS: OLANZAPINE 5 MG TABLET PO SCH (17:00)
[2019-03-15] MEDS: DOXYCYCLINE HYCLATE (100 MG) 100 MG TABLET PO SCH ×2 (17:00→21:39)
--- NOTE | 2019-03-15 19:21 | NUR ---
RN NOTES ENDORSED PATIENT FOR CONTINUITY OF CARE. NOT ON ANY FORM OF DISTRESS. ALL NURSING NEEDS ATTENDED AND MET. SAFETY MEASURES IN PLACE. CALL L8IGHT WITHIN REACH. SITTER AT BEDSIDE
--- NOTE | 2019-03-15 19:25 | NUR ---
CONTROL SPECIALIST OPENING NOTES RECEIVED PATIENT IN BED, A/OX3 WITH EPISODES OF CONFUSION, ABLE TO MAKE NEEDS KNOWN. ON ROOM AIR, BREATHING EVEN AND UNLABORED. ON TELE MONITOR SR WITH HR ON THE 80'S. PATIENT APPEARS COMFORTABLE RIGHT NOW, NO COMPLAINTS OF PAIN. IV ACCESS ON THE R WRIST G 20: IN PLACE AND PATENT, DRESSING C/D/I. NO SIGNS OF INFECTION OR INFILTRATION NOTED. PATIENT ENCOURAGE TO CALL FOR HELP AND ASSISTANCE. SAFETY MEASURES MAINTAINED; CALL LIGHT PLACED WITHIN REACH, SITTER AT BEDSIDE FOR PATIENT SAFETY. WILL CONTINUE TO MONITOR AND ANTICIPATE NEEDS.
[2019-03-15] MEDS: ATORVASTATIN 10 MG TABLET PO SCH (21:39)
--- NOTE | 2019-03-15 23:19 | NUR ---
EMBEDDED PROCESSOR NOTES SITTER MADE RN AWARE OF PATIENT BEING MORE CONFUSED. PATIENT NOTED TALKING TO SELF AND PACING. ASKED PATIENT IF HE WANTS TO TAKE HIS ATIVAN AND RESTORIL, PATIENT REFUSED BOTH AND STATED "I LOST TRUST IN YOU, I WILL TAKE IT IN 30 MINUTES WHEN I FEEL LIKE TAKING IT" WILL CONT TO MONITOR PT CLOSELY.
[2019-03-16] VITALS: BP 111/64
[2019-03-16] MEDS: TEMAZEPAM 7.5 MG CAPSULE PO PRN ×2 (00:24→19:59)
[2019-03-16] MEDS: LORAZEPAM 0.5 MG TABLET PO PRN ×3 (00:24→19:59)
[2019-03-16 04:00] VITALS: BP 150/95
--- NOTE | 2019-03-16 07:08 | NUR ---
EMBEDDED SOFTWARE DEVELOPER CLOSING NOTES PATIENT STANDING ON THE SIDE OF BED, NOTED TALKING TO SITTER AND SELF, A/OX3 WITH EPISODES OF CONFUSION, ABLE TO MAKE NEEDS KNOWN. ON ROOM AIR, BREATHING EVEN AND UNLABORED. ATIVAN AND RESTORIL PO GIVEN AT NIGHT TIME D/T PATIENT PACING AND WAS UNABLE TO SLEEP. SAFETY MEASURES MAINTAINED; CALL LIGHT PLACED WITHIN REACH, SITTER 1:1 AT BEDSIDE FOR PATIENT SAFETY. ALL MD ORDERS ATTENDED. ALL NEEDS ANTICIPATED AND MET. ENDORSED TO AM RN FOR CARON.
--- NOTE | 2019-03-16 07:15 | NUR ---
RN INITIAL NOTES PATIENT IN HIS ROOM WALKING AROUND. VERY CONFUSED, ASKING IRRELEVANT QUESTIONS. ON ROOM AIR. AMBULATORY, STEADY. HAS A RIGHT WRIST #20. SKIN IS INTACT. NO COMPLAINS OF ANY PAIN NOR SOB. BED ON LOWEST POSITION. SITTER AT BEDSIDE. WILL CONTINUE TO MONITOR
[2019-03-16 08:00] VITALS: BP 150/86
[2019-03-16] MEDS: DIVALPROEX SODIUM 500 MG TABLET.DR PO SCH ×2 (08:09→20:02)
[2019-03-16] MEDS: DOCUSATE SODIUM 100 MG CAPSULE PO SCH ×2 (08:09→16:27)
[2019-03-16] MEDS: DOXYCYCLINE HYCLATE (100 MG) 100 MG TABLET PO SCH ×2 (08:09→20:02)
[2019-03-16] MEDS: risperiDONE 1 MG TABLET PO SCH ×2 (08:10→19:58)
[2019-03-16] MEDS: PANTOPRAZOLE 40 MG TABLET.DR PO SCH (08:10)
[2019-03-16] MEDS: ENOXAPARIN SODIUM 40 MG/0.4 ML DISP.SYRIN SQ SCH (08:16)
--- NOTE | 2019-03-16 10:30 | NUR ---
RN NOTES AT BEDSIDE STATING THAT THEIR PERSONAL PSYCHIATRIST WILL BE COMING TODAY AT 1100, DR. CASTORENA. SAID THAT THEY WANTED TO SEE THE PATIENT'S MEDICAL RECORDS. TOLD CN AND ASKED THE PROTOCOL. PER [facility], GIVE DR MITCHELL'S PHONE NUMBER TO DR CASTORENA AND THEY CAN TALK TO EACH OTHER. PER , THEY ALREADY HAVE DR MITCHELL'S NUMBER AND STILL WAITING FOR A CALL BACK. CALLED [facility] AND ASKED IF DR MITCHELL WILL NOT BE COMING IN TODAY. PER THE HUMAN RESOURCES COMPENSATION ANALYST DR MITCHELL IS NOT HOLISTIC PULSER. AND THE HOLISTIC PULSER IS DR BLANCHARD. REACHED DR BLANCHARD TO TELL THE 'S REQUEST. DR BLANCHARD IS AWARE. Addendum: 03/16/19 at 1334 by EUGENIA FARIA RN DISREGARD ABOVE NOTES
--- NOTE | 2019-03-16 11:15 | NUR ---
JOSS NOTES DR CASTORENA - RITIKA'S PERSONAL PSYCHIATRIST IS AT BEDSIDE TOGETHER WITH THE PATIENT AND Addendum: 03/16/19 at 1334 by EUGENIA FARIA RN DISREGARD ABOVE NOTES
[2019-03-16] MEDS: DIVALPROEX SODIUM 250 MG TABLET.DR PO SCH (12:59)
[2019-03-16 16:00] VITALS: BP 148/100
--- NOTE | 2019-03-16 16:50 | NUR ---
RN NOTES REPORT GIVEN TO JOSS SAHNI FROM [facility].
[2019-03-16] MEDS: OLANZAPINE 5 MG TABLET PO SCH (17:51)
--- NOTE | 2019-03-16 18:55 | NUR ---
RN CLOSING NOTES PATIENT IN BED AWAKE, AT BEDSIDE. NO COMPLAINS OF ANY PAIN NOR SOB. AWARE THAT AMBULANCE PASSENGER AGENT AT 1930. ALL MEDS GIVEN, NO COMPLAINS. SITTER AT BEDSIDE WELL. PATIENT WAS CALM BUT WAS HAVING EPISODES OF CONFUSION. ATIVAN GIVEN AT AROUND 1700, PATIENT WAS STARTED TO GET AGITATED AND ANXIOUS. WILL ENDORSE TO NOC SHIFT FOR EXIT CARE AND CARON
[2019-03-16 20:00] VITALS: BP 139/92
[2019-03-16] MEDS: ATORVASTATIN 10 MG TABLET PO SCH (20:01)
--- NOTE | 2019-03-17 00:10 | NUR ---
RN NOTES RECIEVED PATIENT SITTING ON A CHAIR WITH AT BEDSIDE. NO DISTRESS NOTED, BREATHING EVEN AND UNLABORED. NO COMPLAINT OF PAIN OR DISCOMFORT. NOTED WITH AGITATION, ATIVAN 0.5 MG GIVEN, WITH HELP. ALL MEDS GIVEN. AT 2330, AMBULANCE PICKED UP PATIENT IN STABLE CONDITION. VITAL SIGNS WNL. PATIENT COOPERATED WELL.
== END 2019-03-16 23:30 | DRG 315 ==
LOC: TELE1 20:41 → MEDSG1 03-16 11:18
PROVIDERS: ADMIT Internal Medicine; ATTEND Internal Medicine
DX: I95.9 Hypotension, unspecified (principal); F23 Brief psychotic disorder; E78.5 Hyperlipidemia, unspecified; I10 Essential (primary) hypertension; F31.9 Bipolar disorder, unspecified; F12.11 Cannabis abuse, in remission; F43.10 Post-traumatic stress disorder, unspecified; F25.9 Schizoaffective disorder, unspecified; I70.90 Unspecified atherosclerosis; F01.50 Vascular dementia, unspecified severity, without behavioral disturbance, psychotic disturbance, mood disturbance, and anxiety; F12.159 Cannabis abuse with psychotic disorder, unspecified
CPT/HCPCS: 36415; 71045-TC; 80048-TC; 80053-TC; 83735-TC; 84100-TC; 85025-TC; 97116-TC; 97530-TC; G0378; J1650; J2405